=== PATIENT | female | born 1950 | race Caucasian/White ===

== ENCOUNTER 2023-12-21 11:03 | Emergency (ER) | payer MEDICARE, BC ==
[~2023-12-21] VITALS: Ht 157.5 cm; Wt 87.5 kg
[~2023-12-21 11:03] MED LIST: ADULT LOW DOSE81 MG PO; AMLODIPINE BESYL5 MG PO; ATENOLOL50 MG PO; CELECOXIB200 MG PO; CINNAMON500 MG PO; CITRACAL + BON1 EACH PO; DULOXETINE HCL20 MG PO; FLUOXETINE HCL20 MG PO; GABAPENTIN600 MG PO; HEALTHYLAX17 GM PO; IRON325 M1 PO; LIPITOR10 MG PO; LISINOPRIL20 MG PO; LISINOPRIL5 MG PO; METOPROLOL SUCC50 MG PO; MULTIVITAMIN W1 EACH PO; OXYCODONE HCL5 MG PO; SENNA LAX8.6 MG PO; TYLENOL EXTRA500 MG PO; VITAMIN D31000 UNI1 PO
[2023-12-21] MEDS ORDERED: ondansetron HCL 4 MG/2 ML VIAL IV ONE (11:15)
[2023-12-21 11:28] LABS: BILIRUBIN, URINE NEGATIVE (negative); BLOOD/HGB, URINE NEGATIVE (Negative); EOSINOPHILS 1.6 % (0-6); HEMATOCRIT 44.1 % (35.0-50.0); HEMOGLOBIN 14.8 g/dL (12.0-18.0); KETONE, URINE TRACE (Negative); LEUK ESTERASE, URINE MODERATE (negative); LYMPHOCYTES 25.7 % (24-44); MCH 30.5 (27-36); MCHC 33.7 g/dl (30-36); MCV 90.5 fl (81-99); MONOCYTES 9.8 % (0-12); NEUTROPHILS 61.9 % (39-80); NITRITE, URINE NEGATIVE (negative); PLATELET COUNT 358 K/uL (140-440); RBC 4.87 M/ul (4.3-5.7); RDW 14.1 (10.5-15.0)
[2023-12-21 11:38] LABS: EPITHELIAL CELLS, URINE SQUAMOUS 3+ /lpf (0-1+); RED BLOOD CELLS, URINE 0-1 /hpf (0-5)
[2023-12-21 11:39] LABS: BACTERIA, URINE RARE /hpf (negative); CASTS, URINE NONE SEEN \\lpf; COLLECTION TYPE, URINE CLEAN CATCH; CRYSTALS, URINE NONE SEEN (0-1+); REFLEX CULTURE, URINE No (No)
[2023-12-21 11:50] LABS: ALBUMIN 3.5 g/dL (3.4-5.0); ALBUMIN/GLOBULIN RATIO 0.95 (1.1-2.4); ANION GAP 13.9 (7-21); BILIRUBIN, TOTAL 0.4 ng/dL (0.2-1.0); BUN/CREATININE RATIO 27.77 (6.0-28.6); CALCIUM 9.7 mg/dL (8.5-10.1); CREATININE, SERUM 0.72 mg/dL (0.55-1.02); POTASSIUM 3.9 mmol/L (3.5-5.1); PROTEIN, TOTAL 7.2 g/dL (6.4-8.2)
[2023-12-21 14:29] VITALS: BP 119/70
[2023-12-21] MEDS ORDERED: MAGNESIUM HYDROXIDE/AL HYDROX 30 ML CUP PO ONE (14:30)
== END 2023-12-21 14:30 | disposition home or self-care (01) ==
LOC: ED 11:03
PROVIDERS: Emergency Medicine
DX: R10.11 Right upper quadrant pain (principal); I10 Essential (primary) hypertension; Z88.8 Allergy status to other drugs, medicaments and biological substances; Z88.5 Allergy status to narcotic agent
CPT/HCPCS: 36415; 76705; 80053; 81001; 83690; 85025; 96374; 99284-25; A9270; J2405